=== PATIENT | female | born 1980 | race Two or more races ===

== ENCOUNTER 2017-07-17 11:22 | Emergency (ER) | payer OTHER ==
[2017-07-17 11:33] VITALS: BP 145/94; PULSE 106; TEMP 98; BMI 64.7
--- NOTE | 2017-07-17 12:08 | PDOC ---
History of Present Illness - General Chief Complaint: Lice Stated Complaint: HEAD ITCHY Time Seen by Provider: 07/17/17 11:45 - History of Present Illness Initial Comments: 6-year-old female complains of itchy scalp 2 days. No other associated symptoms. 07/17/17 12:06 Past History - Past Medical History Allergies/Adverse Reactions: Allergies Allergy/AdvReac Type Severity Reaction Status Date / Time No Known Allergies Allergy Verified 07/17/17 11:30 Home Medications: Ambulatory Orders Hydrocodone/Acetaminophen [[place] 5-325 Tablet] 1 tab PO QID PRN 11/20/12 Albuterol Sulfate Inhaler - [Ventolin HFA Inhaler -] 1 inh IH Q4H PRN #1 inh 12/24 Amitriptyline HCl [Elavil -] 25 mg PO HS #0 tablet 11/21/12 Piperonyl Butox/Pyrethr/Permet [Complete Lice Treatment Kit] 1 each TP ONCE #1 kit 07/17/17 Asthma: Yes HTN: Yes (NO MEDS) - Surgical History Orthopedic Surgery: Yes (LT KNEE SURGERY ,RT WRIST) - Immunization History Td Vaccination: No TDAP Vaccination: No Immunization Up to Date: No - Suicide/Smoking/Psychosocial Hx Smoking Status: No Smoking History: Never smoked Have you smoked in the past 12 months: Yes Number of Cigarettes Smoked Daily: 3 If you are a former smoker, when did you quit?: 1 MOS AGO 'Breaking Loose' booklet given: 11/20/12 Hx Alcohol Use: No Drug/Substance Use Hx: No Substance Use Type: Marijuana Hx Substance Use Treatment: Yes Review of Systems - Review of Systems Integumentary: Yes: Pruritus All Other Systems: Reviewed and Negative *Physical Exam - Vital Signs Last Vital Signs Temp Pulse Resp BP Pulse Ox 98 F 106 H 16 145/94 99 07/17/17 11:25 07/17/17 11:25 07/17/17 11:25 07/17/17 11:25 07/17/17 11:25 - Physical Exam Comments: Head lice visualized GENERAL: The patient is awake, alert, and fully oriented, in no acute distress. HEAD: Normal with no signs of trauma. EXTREMITIES: Normal range of motion, no edema. NEUROLOGICAL: Cranial nerves II through XII grossly intact. PSYCH: Normal mood, normal affect. SKIN: Warm, Dry, normal turgor, no rashes or lesions noted. 07/17/17 12:06 *DC/Admit/Observation/Transfer Diagnosis at time of Disposition: Lice infestation - Discharge Dispostion Disposition: HOME Condition at time of disposition: Stable Decision to Admit order: No - Prescriptions Prescriptions: Piperonyl Butox/Pyrethr/Permet [Complete Lice Treatment Kit] 1 each TP ONCE #1 kit - Referrals Referrals: Florencio Nuñez MD [Primary Care Provider] - - Patient Instructions Printed Discharge Instructions: Head Lice, DI for Head Lice - Post Discharge Activity
== END 2017-07-17 12:16 | disposition home or self-care (01) ==
LOC: JERFT 11:22
DX: J45.909 Unspecified asthma, uncomplicated (principal); Z87.891 Personal history of nicotine dependence
CPT/HCPCS: 99281-25

== ENCOUNTER 2018-03-06 13:12 | Inpatient (IN) | payer OTHER ==
--- NOTE | 2018-03-06 07:39 | HP ---
History & Physical Update - History History: No Change - Physical Physical: No Change - Assessment Assessment: No Change - Plan Plan: No Change
[2018-03-06 10:36] VITALS: BMI 63.1
--- NOTE | 2018-03-06 13:10 | OP ---
Operative Note - Note: Operative Date: 03/06/18 Pre-Operative Diagnosis: Chronic LBP, malfunctioning hardware Operation: Remove/exchange new spinal cord stimulator battery, place deeper into the subcutaneous tissue (2cm). Post-Operative Diagnosis: Same as Pre-op Surgeon: Jaswinder Cooper Soft Crab Shedder: Marques Matt Anesthesiologist/DEER FARMER: Robert Gibson Anesthesia: Spinal Specimens Removed: Old spinal cord stimulator battery Estimated Blood Loss (mls): 5 Fluid Volume Replaced (mls): 300 Operative Report Dictated: Yes
[~2018-03-06 13:12] MED LIST: ACETAMINOPHEN 325 MG TABLET (FP) PO PRN; DEXAMETHASONE SOD PHOSPHATE 4 MG/1 ML VIAL ONE; KETOROLAC TROMETHAMINE 30 MG/1 ML VIAL IVPUSH PRN; LIDOCAINE 1%/EPI 1:100000 (20 ML MULTI DOSE VIAL) ONE; MIDAZOLAM HCL 2 MG/2 ML SINGLE DOSE VIAL ONE; ONDANSETRON 4 MG/2 ML VIAL IVPUSH PRN; ONDANSETRON 4 MG/2 ML VIAL ONE; PROMETHAZINE HCL 25 MG/1 ML VIAL IVPUSH PRN; PROMETHAZINE HCL 25 MG/1 ML VIAL ONE; THROMBIN (BOVINE) 5,000 UNIT VIAL TP ONE; ceFAZolin SODIUM 1 GM VIAL ONE; ePHEDrine SULFATE 50 MG/1 ML AMPULE ONE; methylPREDNISolone ACET (DEPO) 40 MG/1 ML VIAL ONE; oxyCODONE HCL 10 MG SUSTAINED ACTING TABLET PO STA; oxyCODONE HCL 5 MG TABLET PO PRN
--- NOTE | 2018-03-06 13:12 | SURG ---
Surgery Bio Medical Technician Note Bio Medical Technician: Marques Matt PA-C Date of Service: 03/06/18 Diagnosis: Chronic LBP, malfuctioning spinal cord stimulator battery Procedure: Revision of spinal cord stimulator pocket (deeper into subcutaneous tissue 2cm) , new battery I was present for the entirety of the operative procedure. For further detail, please refer to operative report. Visit type - Case Type Case Type: Scheduled - New patient This patient is new to me today: Yes Date on this admission: 03/06/18
[2018-03-06] MEDS ORDERED: ALBUTEROL SO4 8 GM HFA INHALER IH PRN (13:14)
[2018-03-06] MEDS ORDERED: morphine SO4 SUSTAINED ACTING 30 MG TABLET.SA PO SCH ×2 (13:15→15:45)
[2018-03-06] MEDS ORDERED: LACTATED RINGERS SOLUTION 1,000 ML IV SCH (13:15)
--- NOTE | 2018-03-06 13:49 | OP ---
DATE OF OPERATION: 03/06/2018 PREOPERATIVE DIAGNOSIS: Painful hardware, spinal cord stimulator. POSTOPERATIVE DIAGNOSIS: Painful hardware, spinal cord stimulator. PROCEDURE PERFORMED: Revision of spinal cord stimulator. SURGEON: Jaswinder Cooper MD SYNTHETIC STAPLE EXTRUDER: VIK Jones ESTIMATED BLOOD LOSS: 50 mL INTRAVENOUS FLUIDS: Per Anesthesia. ANESTHESIA: Spinal. COMPLICATIONS: None. DISPOSITION: Patient brought to the PACU in stable condition. INDICATION OF SURGERY: The patient is a 37-year-old female who had a spinal cord stimulator placed 3 years ago. She states that the spinal cord stimulator was a little bit too superficial, and as a result, it was painful. She had asked for a revision of the spinal cord stimulator. Risks, benefits, and alternatives discussed, and the patient consented to surgery. DESCRIPTION OF OPERATION: Patient was brought to the operating room by the anesthesia staff. After appropriate patient identification was performed, spinal anesthesia was given. The patient was able to position herself prone onto the [place] frame. She was able to avoid all bony prominences. Her back was prepped and draped in a sterile manner. At this point, timeout was completed, and an incision was made over her previous battery. Dissection was carried down to the battery, and the battery was isolated. Once the battery was isolated, the wires were disconnected, and the battery was removed. A new adaptor was placed on, and a new battery was placed in. Once that was done, a new pocket was made deeper. It was tested, and it appeared to be fine on testing. The wound was thoroughly irrigated. The subcutaneous tissues were closed with 2-0 Vicryl suture. The skin was closed with 3-0 Monocryl suture. Dermabond was applied. Steri-Strips were applied. Sterile dressing was applied. Patient was placed supine on the OR bed and brought to the PACU in stable condition. JASWINDER COOPER M.D. CHAYA/[id number]
[2018-03-06] MEDS ORDERED: KETOROLAC TROMETHAMINE 30 MG/1 ML VIAL ONE (15:00)
[2018-03-06 16:40] VITALS: BP 134/61; PULSE 85; TEMP 97.6
[2018-03-06] MEDS ORDERED: AMITRIPTYLINE HCL 25 MG TABLET (FP) PO SCH (22:00)
[2018-03-06] MEDS ORDERED: AMITRIPTYLINE HCL PO SCH (22:00)
--- NOTE | 2018-03-11 14:35 | PATH ---
Surgical Pathology Report Patient Name: CHANO SEALS Med. Rec. #: [id number] /Age/Gender: 1980 (Age: 37) / F Account: [id number] Location: [facility] MED-SURG Taken: 03/07/2018 Received: 03/07/2018 Reported: 03/11/2018 Physicians: Jaswinder Cooper M.D. Specimen(s) Received EXPLANTED HARDWARE FROM BACK Clinical History Painful hardware Final Diagnosis EXPLANTED HARDWARE FROM BACK, REMOVAL: CONSISTENT WITH HARDWARE. GROSS EXAMINATION ONLY. Electronically Signed Brandon Carr M.D. Gross Description Received fresh labeled "explanted hardware from right lower back," is a 5.3 x 5.3 x 0.7 cm [place] metallic device with the following inscription: "[employer] SureScan MRI SN: [id number]." No soft tissue is present. No sections are submitted, gross only. DL/03/07/2018 saudi03/07/2018
== END 2018-03-06 16:05 | disposition home or self-care (01) | DRG 23 ==
LOC: FASUSAT 13:12 → FM/S 13:12
PROVIDERS: ADMIT Orthopaedic Surgery Orthopaedic Surgery of the Spine; ATTEND Orthopaedic Surgery Orthopaedic Surgery of the Spine
PROC: 00PV0MZ Removal of Neurostimulator Lead from Spinal Cord, Open Approach (ICD-10-PCS; 2018-03-06)
PROC: 0JH70BZ Insertion of Single Array Stimulator Generator into Back Subcutaneous Tissue and Fascia, Open Approach (ICD-10-PCS; principal; 2018-03-06 12:14)
DX: T85.112A Breakdown (mechanical) of implanted electronic neurostimulator of spinal cord electrode (lead), initial encounter (principal); M54.5 Low back pain; Y83.8 Other surgical procedures as the cause of abnormal reaction of the patient, or of later complication, without mention of misadventure at the time of the procedure
CPT/HCPCS: 36415; 84703; 87389; 88300-TC; 94760

== ENCOUNTER 2024-10-09 02:57 | Inpatient (IN) | payer OTHER ==
[2024-10-09] MEDS ORDERED: HALOPERIDOL LACTATE 5 MG/ML ONE (03:16)
[2024-10-09] MEDS: HALOPERIDOL LACTATE 5 MG/ML IVPUSH ONE (03:23)
[2024-10-09] MEDS ORDERED: FAMOTIDINE 20 MG/50 ML IVPB 20 MG/50 ML MG IVPB ONE (03:27)
[2024-10-09] MEDS: FAMOTIDINE 20 MG/50 ML IVPB 20 MG/50 ML MG IVPB ONE (03:32)
[2024-10-09 03:34] LABS: ABSOLUTE IMMATURE GRANULOCYTES 0.13 x10^3/uL (0.0-0.031); BASOPHILS # 0.04 x10^3/uL (0.01-0.08); EOSINOPHIL % 1.7 % (0.7-5.8); EOSINOPHILS # 0.28 x10^3/uL (0.04-0.36); MCHC 31.6 g/dl (32.2-35.5); MEAN CELL VOLUME 85.7 fl (79.4-94.8); MEAN PLT VOLUME 10.2 fl (9.4-12.3); MONOCYTE # 0.48 x10^3/uL (0.24-0.86); MONOCYTE % 3.0 % (4.7-12.5); RDW 14.2 % (12.2-17.1)
[2024-10-09 03:58] LABS: INR 1.01 (0.83-1.09); PROTHROMBIN TIME (PATIENT) 11.1 SEC (9.7-13.0)
[2024-10-09 04:01] LABS: ACTIVATED PTT 33.1 SECONDS (25.2-36.5)
[2024-10-09 04:02] LABS: GLUCOSE,RANDOM 122.0 mg/dL (74-106)
[2024-10-09 04:03] LABS: TOT PROT 8.7 g/dl (6.4-8.2)
[2024-10-09 04:04] LABS: CO2 21.0 mmol/L (21-32)
[2024-10-09 04:05] LABS: ALK PHOS 114.0 U/L (40-150)
[2024-10-09 04:08] LABS: CREATININE 0.81 mg/dL (0.55-1.3); SGOT/AST 76.0 U/L (5-34); SGPT/ALT 12.0 U/L (0-55)
[2024-10-09] MEDS ORDERED: ACETAMINOPHEN INJECTION 100 ML ONE ×3 (04:14→16:54)
[2024-10-09] MEDS: SODIUM CHLORIDE 0.9% 500 ML INFUS.BAG IV ONE (04:20)
[2024-10-09] MEDS: ACETAMINOPHEN 1000 MG/100 ML BAG IVPB ONE ×2 (04:20→11:02)
[2024-10-09 04:41] LABS: HCV DIAGNOSTIC IN-HOUSE W/RFLX NON-REACTIVE (NONREACTIVE); HIV INTERPRETATION NEGATIVE (NEGATIVE)
[2024-10-09] MEDS ORDERED: ONDANSETRON 4 MG/2 ML VIAL ONE ×2 (05:00→15:33)
[2024-10-09] MEDS: ONDANSETRON 4 MG/2 ML VIAL IVPB ONE (05:05)
[2024-10-09] MEDS: morphine CARPU-JECT 4 MG/1 ML DISP.SYRIN IVPUSH ONE ×2 (07:50→13:23)
[2024-10-09 08:12] LABS: EPI CELLS 19 /uL (0-25.1); HYALINE CASTS 0 /uL (0-3.1); URINE APPEARANCE CLEAR; URINE BACTERIA 362 /uL (0-1359); URINE BILIRUBIN NEGATIVE (NEGATIVE); URINE COLOR YELLOW; URINE GLUCOSE (UA) NEGATIVE (NEGATIVE); URINE KETONE NEGATIVE (NEGATIVE); URINE LEUK ESTERASE NEGATIVE (NEGATIVE); URINE NITRITE NEGATIVE (NEGATIVE); URINE PROTEIN NEGATIVE (NEGATIVE); URINE RBC 27 /uL (0-23.9); URINE UROBILINOGEN 0.2 mg/dL (0.2-1.0); URINE WBC 22 /uL (0-25.8)
[2024-10-09] MEDS ORDERED: morphine CARPU-JECT 2 MG/1 ML DISP.SYRIN IVPUSH PRN (10:41)
[2024-10-09] MEDS ORDERED: ONDANSETRON 4 MG/2 ML VIAL IVPUSH PRN ×3 (10:43→18:08)
[2024-10-09] MEDS ORDERED: KETOROLAC TROMETHAMINE 15 MG/ML VIAL IVPUSH PRN (10:44)
[2024-10-09] MEDS: CEFTRIAXONE 1,000 MG in DEXTROSE 5%-WATER - 50 ML IVPB ONE (10:45)
[2024-10-09] MEDS ORDERED: CEFTRIAXONE 1 GM/50 ML BAG ONE (10:52)
[2024-10-09] MEDS ORDERED: DEXMEDETOMIDINE HCL 200 MCG/2 ML IVPB ONE (15:28)
[2024-10-09] MEDS ORDERED: SUCCINYLCHOLINE CHLORIDE 200 MG/10 ML SYRINGE ONE (15:31)
[2024-10-09] MEDS ORDERED: PROPOFOL 60 ML ONE (15:32)
[2024-10-09] MEDS ORDERED: MIDAZOLAM HCL 2 MG/2 ML SINGLE DOSE VIAL ONE (15:32)
[2024-10-09] MEDS ORDERED: LIDOCAINE HCL/PF 2% SDV 5ML VIAL ONE (15:33)
[2024-10-09] MEDS ORDERED: ALBUTEROL SO4 HFA INHALER IH ONE (15:33)
[2024-10-09] MEDS ORDERED: GLYCOPYRROLATE 0.2 MG/1 ML VIAL ONE (15:33)
[2024-10-09] MEDS ORDERED: ROCURONIUM BROMIDE 50 MG/5 ML SYRINGE ONE (15:37)
[2024-10-09] MEDS ORDERED: DEXTROSE 5%-0.45% SALINE 1,000 ML IV SCH (16:30)
[2024-10-09] MEDS: BUPIVACAINE HCL/PF 0.25% (2.5MG/ML) 10 ML VIAL IJ ONE (16:30)
[2024-10-09] MEDS ORDERED: SUGAMMADEX SODIUM 200 MG/2 ML VIAL ONE (17:38)
[2024-10-09] MEDS: ACETAMINOPHEN 1000 MG/100 ML BAG IVPB SCH (18:20)
[2024-10-09] MEDS ORDERED: HYDROmorphone *PCA* 10MG/50ML DISP.SYRIN ONE (18:25)
[2024-10-09] MEDS: HYDROmorphone *PCA* 10MG/50ML DISP.SYRIN PCA SCH (18:27)
[2024-10-09] MEDS: DEXTROSE 5%-0.45% SALINE 1,000 ML IV SCH (18:33)
[2024-10-09] MEDS: AMITRIPTYLINE HCL 25 MG TABLET PO SCH (21:42)
[2024-10-09] MEDS: HEPARIN NA (PORCINE) 5,000 UNITS/ML 1ML VIAL SQ SCH (21:42)
[2024-10-09] MEDS ORDERED: HEPARIN NA (PORCINE) 5,000 UNITS/ML 1ML VIAL SQ SCH (22:00)
[2024-10-10] MEDS: ALBUTEROL SO4 HFA INHALER IH PRN (06:00)
[2024-10-10 09:08] LABS: ABSOLUTE IMMATURE GRANULOCYTES 0.08 x10^3/uL (0.0-0.031); BASOPHILS # 0.03 x10^3/uL (0.01-0.08); EOSINOPHIL % 0.1 % (0.7-5.8); EOSINOPHILS # 0.01 x10^3/uL (0.04-0.36); RDW 14.1 % (12.2-17.1)
[2024-10-10 09:09] LABS: MCHC 31.4 g/dl (32.2-35.5); MEAN CELL VOLUME 87.3 fl (79.4-94.8); MEAN PLT VOLUME 11.5 fl (9.4-12.3); MONOCYTE # 0.66 x10^3/uL (0.24-0.86); MONOCYTE % 4.1 % (4.7-12.5)
[2024-10-10 09:46] LABS: GLUCOSE,RANDOM 102.0 mg/dL (74-106)
[2024-10-10 09:47] LABS: TOT PROT 7.6 g/dl (6.4-8.2)
[2024-10-10 09:48] LABS: CO2 23.0 mmol/L (21-32)
[2024-10-10 09:49] LABS: ALK PHOS 90.0 U/L (40-150)
[2024-10-10 09:52] LABS: CREATININE 0.72 mg/dL (0.55-1.3); SGOT/AST 86.0 U/L (5-34); SGPT/ALT 23.0 U/L (0-55)
[2024-10-10 13:18] VITALS: RESP 18
[2024-10-10 15:20] VITALS: BMI 59.0
[2024-10-10] MEDS: PIPERACILLIN/TAZOB 3.375 GM 3.375 GM in DEXTROSE 5%-WATER - 50 ML IVPB SCH (16:06)
[2024-10-11 07:50] LABS: ABSOLUTE IMMATURE GRANULOCYTES 0.07 x10^3/uL (0.0-0.031); BASOPHILS # 0.05 x10^3/uL (0.01-0.08); EOSINOPHIL % 2.0 % (0.7-5.8); EOSINOPHILS # 0.21 x10^3/uL (0.04-0.36); MCHC 31.3 g/dl (32.2-35.5); MEAN CELL VOLUME 85.9 fl (79.4-94.8); MEAN PLT VOLUME 10.1 fl (9.4-12.3); MONOCYTE # 0.93 x10^3/uL (0.24-0.86); MONOCYTE % 9.0 % (4.7-12.5); RDW 14.3 % (12.2-17.1)
[2024-10-11 08:04] LABS: GLUCOSE,RANDOM 97.0 mg/dL (74-106)
[2024-10-11 08:05] LABS: TOT PROT 7.5 g/dl (6.4-8.2)
[2024-10-11 08:06] LABS: CO2 24.0 mmol/L (21-32)
[2024-10-11 08:07] LABS: ALK PHOS 84.0 U/L (40-150)
[2024-10-11 08:10] LABS: CREATININE 0.9 mg/dL (0.55-1.3); SGOT/AST 77.0 U/L (5-34); SGPT/ALT 18.0 U/L (0-55)
[2024-10-11] MEDS: ALBUTEROL SO4 2.5/IPRATROPIUM 0.5 INH SOL 3 ML VIAL.NEB. NEB SCH (12:07)
[2024-10-11] MEDS: BUDESONIDE/FORMETEROL FUMARATE 160/4.5 mcg INHALER IH ONE (15:14)
[2024-10-11] MEDS: MONTELUKAST NA 10 MG TABLET PO SCH (21:44)
[2024-10-11] MEDS: morphine SO4 SUSTAINED ACTING 30 MG TABLET.SA PO SCH (21:44)
[2024-10-12 14:53] VITALS: BP 112/58; PULSE 84; TEMP 98.1
== END 2024-10-12 17:48 | disposition home or self-care (01) | DRG 263 ==
LOC: JER 02:57 → JERBED 10:20 → J7W 13:53
PROVIDERS: ADMIT Internal Medicine; ATTEND Internal Medicine
PROC: 0FT44ZZ Resection of Gallbladder, Percutaneous Endoscopic Approach (ICD-10-PCS; principal; 2024-10-09 15:00)
DX: K80.00 Calculus of gallbladder with acute cholecystitis without obstruction (principal); J45.901 Unspecified asthma with (acute) exacerbation; E66.9 Obesity, unspecified; F12.90 Cannabis use, unspecified, uncomplicated; G89.29 Other chronic pain; K82.8 Other specified diseases of gallbladder; R11.0 Nausea
CPT/HCPCS: 36415; 71045-TC-FY; 76705-TC; 80053; 81003; 83690; 84484; 84703; 85025; 85610; 85730; 86803; 86850; 86900; 86901; 87040; 87086; 87389; 88304-TC; 93005; 93010; 94010; 94640; 94760; 99285-25